=== PATIENT | male | born 1970 ===

== ENCOUNTER 2024-04-28 12:15 | Inpatient (IN) | payer OTHER ==
[~2024-04-28] VITALS: Ht 177.8 cm; Wt 105.7 kg
[2024-04-28] MEDS ORDERED: CRESTOR40 MG PO (15:33)
[2024-04-28] MEDS ORDERED: FARXIGA10 MG PO (15:33)
[2024-04-28] MEDS ORDERED: ZESTORETIC 20-1 EAC1 PO (15:33)
[2024-04-28] MEDS ORDERED: METFORMIN HCL500 M3 PO (15:34)
[2024-05-04] MEDS ORDERED: LIDOCAINE HCL 1%/EPINEPHRINE 20ML VIAL IJ ONE ×2 (07:03→08:00)
[2024-05-04] MEDS ORDERED: CEFTRIAXONE SODIUM 2,000 MG VIAL ONE (07:03)
[2024-05-04] MEDS ORDERED: METRONIDAZOLE/SODIUM CHLORIDE 500 MG/100 ML PIGGYBACK IV ONE ×2 (07:03→08:00)
[2024-05-04] MEDS ORDERED: BUPIVACAINE HCL/MPF 0.5% 30ML VIAL ONE (07:03)
[2024-05-04] MEDS ORDERED: BUPIVACAINE HCL 30 ML VIAL IJ ONE (08:00)
[2024-05-04] MEDS ORDERED: CEFTRIAXONE SODIUM 2,000 MG VIAL IV ONE (08:00)
[2024-05-04] MEDS ORDERED: MORPHINE SULFATE 4 MG/ML CARTRIDGE IV PRN (11:15)
[2024-05-04] MEDS ORDERED: OxyCODONE HCL 5 MG TABLET (ROXICODONE) PO PRN (11:15)
[2024-05-04] MEDS ORDERED: DEXTROSE 50 % IN WATER 0.5 G/ML DISP.SYRIN IV PRN (11:15)
[2024-05-04] MEDS ORDERED: ONDANSETRON HCL 2 MG/ML VIAL IV PRN (11:15)
[2024-05-04] MEDS ORDERED: RINGERS SOLUTION,LACTATED 1,000 ML IV SCH (11:15)
[2024-05-04] MEDS ORDERED: MORPHINE SULFATE 4 MG/ML VIAL IV ONE ×2 (11:30→12:00)
[2024-05-04] MEDS ORDERED: hydrALAZINE HCL 20 MG VIAL ONE (12:37)
[2024-05-04] MEDS ORDERED: HYOSCYAMINE SULFATE 0.125 MG TAB.SUBL SL SCH (13:00)
[2024-05-04 13:15] LABS: HEMATOCRIT 42.1 % (39.0-48.0); HEMOGLOBIN 14.1 g/dL (13-16.00); MEAN CELL VOLUME 83.4 fL (80.0-100.00); MEAN CORPUSCULAR HEMOGLOBIN 27.9 pg (27.00-32.0); MEAN CORPUSCULAR HGB CONC 33.5 g/dl (32.0-36.0); PLATELET COUNT 272 K/uL (150-450); RED BLOOD COUNT 5.05 M/uL (4.00-6.00); RED CELL DISTRIBUTION WIDTH 13.8 % (11.5-14.5)
[2024-05-04] MEDS ORDERED: hydrALAZINE HCL 20 MG VIAL IV PRN (13:45)
[2024-05-04 13:52] VITALS: BP 165/83; O2SAT 97
[2024-05-04 13:55] LABS: ALBUMIN 3.6 gm/dL (3.4-5.0); CALCIUM 8.5 mg/dL (8.5-10.1); CREATININE SERUM 1.66 mg/dL (0.70-1.30); GFR 43.89; MAGNESIUM 2.1 mg/dL (1.8-2.4); PHOSPHOROUS 4.7 mg/dL (2.5-4.9); POTASSIUM 4.63 mEq/L (3.5-5.1)
[2024-05-04] MEDS ORDERED: ACETAMINOPHEN 500 MG GEL..CAP PO SCH (14:00)
[2024-05-04 14:37] VITALS: O2SAT 97
[2024-05-04 14:40] LABS: ABG PH 7.429 (7.35-7.45); ABG PO2 75.1 mmHg (80-100); BICARBONATE 25.2 mmol/l (23-25); SaO2 95.3 %; Tco2 26.4 mmol/l; allen test SATISFACTORY; o2 21 %; puncture site RADIAL RIGHT
[2024-05-04 16:00] VITALS: BP 168/90; O2SAT 97
[2024-05-04 16:43] VITALS: O2SAT 96
[2024-05-04] MEDS ORDERED: GABAPENTIN 300 MG CAPSULE PO SCH (17:00)
[2024-05-04] MEDS ORDERED: CELECOXIB 200 MG CAPSULE PO SCH (17:00)
[2024-05-04] MEDS ORDERED: POLYETHYLENE GLYCOL 3350 17 GM BLIST.PACK PO SCH (17:00)
[2024-05-04 19:57] VITALS: O2SAT 90
[2024-05-04] MEDS ORDERED: FAMOTIDINE/PF 20 MG/2 ML VIAL IV PUSH SCH (21:00)
[2024-05-05] VITALS (9 sets, daily range): BP systolic 156–173; BP diastolic 78–97; O2SAT 90–98
[2024-05-05 07:51] LABS: HEMATOCRIT 40.8 % (39.0-48.0); HEMOGLOBIN 13.8 g/dL (13-16.00); MEAN CELL VOLUME 82.4 fL (80.0-100.00); MEAN CORPUSCULAR HEMOGLOBIN 27.9 pg (27.00-32.0); MEAN CORPUSCULAR HGB CONC 33.9 g/dl (32.0-36.0); PLATELET COUNT 278 K/uL (150-450); RED BLOOD COUNT 4.95 M/uL (4.00-6.00); RED CELL DISTRIBUTION WIDTH 13.8 % (11.5-14.5)
[2024-05-05 08:56] LABS: ALBUMIN 3.4 gm/dL (3.4-5.0); CALCIUM 8.7 mg/dL (8.5-10.1); CREATININE SERUM 1.44 mg/dL (0.70-1.30); GFR 51.72; MAGNESIUM 2.1 mg/dL (1.8-2.4); PHOSPHOROUS 4.2 mg/dL (2.5-4.9); POTASSIUM 4.6 mEq/L (3.5-5.1)
[2024-05-05] MEDS ORDERED: HYDROCHLOROTHIAZIDE 12.5 MG CAPSULE PO SCH (09:00)
[2024-05-05] MEDS ORDERED: LISINOPRIL 20 MG TABLET PO SCH (09:00)
[2024-05-05] MEDS ORDERED: DEXTROSE 50 % IN WATER 0.5 G/ML DISP.SYRIN IV PRN (10:15)
[2024-05-05] MEDS ORDERED: INSULIN LISPRO 1,000 UNIT/10 ML UNITS SUBCUTANEO PRN (10:15)
[2024-05-05] MEDS ORDERED: ENOXAPARIN SODIUM 40 MG/0.4 ML SYRINGE SUBCUTANEO SCH (17:00)
[2024-05-06] VITALS (8 sets, daily range): BP systolic 142–160; BP diastolic 83–90; O2SAT 90–99
[2024-05-06 06:24] LABS: HEMATOCRIT 39.3 % (39.0-48.0); HEMOGLOBIN 13.3 g/dL (13-16.00); MEAN CELL VOLUME 83.1 fL (80.0-100.00); MEAN CORPUSCULAR HEMOGLOBIN 28.1 pg (27.00-32.0); MEAN CORPUSCULAR HGB CONC 33.8 g/dl (32.0-36.0); PLATELET COUNT 245 K/uL (150-450); RED BLOOD COUNT 4.72 M/uL (4.00-6.00); RED CELL DISTRIBUTION WIDTH 13.9 % (11.5-14.5)
[2024-05-06 07:18] LABS: CREATININE SERUM 1.36 mg/dL (0.70-1.30); GFR 55.24; MAGNESIUM 2.1 mg/dL (1.8-2.4); PHOSPHOROUS 3.3 mg/dL (2.5-4.9); POTASSIUM 4.24 mEq/L (3.5-5.1)
[2024-05-06] MEDS ORDERED: ENOXAPARIN SODIUM 40 MG/0.4 ML SYRINGE SUBCUTANEO SCH (09:00)
[2024-05-07 00:18] VITALS: O2SAT 99
[2024-05-07 01:15] VITALS: BP 158/80; O2SAT 100
[2024-05-07 05:08] VITALS: O2SAT 100
[2024-05-07 08:32] VITALS: BP 180/80; O2SAT 96
[2024-05-07 09:10] VITALS: O2SAT 96
== END 2024-05-07 15:39 | disposition home or self-care (01) | DRG 330 ==
LOC: O/R 12:15 → SURG 05-04 05:40
PROVIDERS: Internal Medicine Geriatric Medicine; ADMIT Colon & Rectal Surgery; ATTEND Colon & Rectal Surgery
PROC: 0DTN4ZZ Resection of Sigmoid Colon, Percutaneous Endoscopic Approach (ICD-10-PCS; 2024-05-04)
PROC: 07BB4ZZ Excision of Mesenteric Lymphatic, Percutaneous Endoscopic Approach (ICD-10-PCS; 2024-05-04)
PROC: 0DJD8ZZ Inspection of Lower Intestinal Tract, Via Natural or Artificial Opening Endoscopic (ICD-10-PCS; 2024-05-04)
PROC: 4A12X4Z Monitoring of Cardiac Electrical Activity, External Approach (ICD-10-PCS; 2024-05-04)
PROC: 0DBP4ZZ Excision of Rectum, Percutaneous Endoscopic Approach (ICD-10-PCS; principal; 2024-05-04 15:30)
DX: C18.7 Malignant neoplasm of sigmoid colon (principal); K92.1 Melena; K66.0 Peritoneal adhesions (postprocedural) (postinfection); R59.0 Localized enlarged lymph nodes; G47.30 Sleep apnea, unspecified; I12.9 Hypertensive chronic kidney disease with stage 1 through stage 4 chronic kidney disease, or unspecified chronic kidney disease; E11.22 Type 2 diabetes mellitus with diabetic chronic kidney disease; N18.2 Chronic kidney disease, stage 2 (mild); Z79.4 Long term (current) use of insulin